=== PATIENT | female | born 1955 | race Two or more races ===

== ENCOUNTER 2020-04-17 10:11 | Emergency (ER) | payer OTHER ==
[~2020-04-17] VITALS: Ht 167.6 cm; Wt 77.6 kg
[~2020-04-17 10:11] MED LIST: CEFADROXIL500 MG PO; MOTRIN800 MG; PERCOCET 5/3251 TAB PO; XARELTO10 MG PO
[2020-04-17] MEDS ORDERED: KETO10TA2 PO (11:47)
== END 2020-04-17 12:34 | disposition home or self-care (01) ==
LOC: ER 10:11
DX: S52.592A Other fractures of lower end of left radius, initial encounter for closed fracture (principal); W18.09XA Striking against other object with subsequent fall, initial encounter; Y93.89 Activity, other specified; Y92.018 Other place in single-family (private) house as the place of occurrence of the external cause; Y99.8 Other external cause status

== ENCOUNTER 2020-04-25 06:57 | Day surgery (SDC) | payer OTHER ==
[~2020-04-25 06:57] MED LIST changes: +KETO10TA2 PO
== END 2020-04-25 21:29 | disposition home or self-care (01) ==
LOC: CIR.AMB 06:57
PROVIDERS: ATTEND Orthopaedic Surgery Hand Surgery
DX: S52.532A Colles' fracture of left radius, initial encounter for closed fracture (principal); Z20.822 Contact with and (suspected) exposure to COVID-19
CPT/HCPCS: 25609; 25118; 25280; C1776